=== PATIENT | female | born 1980 | race Caucasian/White ===

== ENCOUNTER 2025-02-24 13:54 | Outpatient (AMB) | payer OTHER, SELFPAY ==
--- NOTE | 2025-02-24 13:56 | MHC.OFFVISWM ---
VS Expanded 02/24/25 14:10 BP 105/57 L Blood Pressure Location Rt brachial Blood Pressure Position Sitting Pulse 65 Pulse Source Pulse Oximeter Temp 97.8 F Temperature Source Temporal Artery Scan Pulse Oximetry 99 Oxygen Delivery Method Room Air Height 5 ft 7 in Weight 257 lb 12.8 oz BMI 40.4 Body Fat % 48.4 Body Fat Mass 124.8 Fat Free Mass 133.0 Visceral Fat Rating 14.0 Body Water % 36.9 Body Water Mass 95.0 Muscle Mass/Score 126.4 Basal Metabolic Rate/Score 1,898 Intake Visit Reasons: OV PO LSG 07/30/19 *See Comments* Deputy Assessor Required: No Allergies environmental allergies Allergy (Mild, Verified 02/24/25 14:00) SNEEZE Medication List - Last Reconciled 02/24/25 by BRENDAN Hawley albuterol sulfate 90 mcg/actuation inhalation fluticasone propion-salmeterol 500-50 mcg/dose inhalation hydroxychloroquine 200 mg PO BID methotrexate sodium 17.5 mg PO QWEEK montelukast 10 mg PO DAILY tramadol 50 mg PO TID PRN HPI Comments Details: Patient is a 45-year-old female who returns to the office today in follow-up. She is 5 years 7 months post sleeve gastrectomy performed 07/30/2019. She states that right after surgery, the COVID pandemic occurred and things were shut down. Over the time since, she had to care for her family. At this point she is now able to focus on herself. She reports starting weight when entering the program was a proximally 260 lb. Weight at the time of surgery was approximately 223 lb. Lowest weight was 209 lb. Weight today is 257.8 lb with a BMI of 40.4. Meal plan: none Exercise plan: nothing formal Has PF membership Any post op complications: none ART: never DM: never HTN: never Hyperlipidemia: never GERD:?0-5 scale ??0 = no symptoms ??1 = symptoms noticeable but not bothersome 2 =symptoms bothersome but not daily ? 3 = symptoms bothersome and daily 4 = symptoms affect daily activities 5 = symptoms are incapacitating, unable to do daily activities ? How bad is the heartburn: 2 ? Heartburn while lying down: 0 ? Heartburn when standing up: 2 ? Heartburn after meals: 2 ? Does heartburn change your diet: 0 ? Does heartburn wake you up from sleep: 0 ? Do you have difficulty swallowin ? Do you have pain with swallowin ? If you take medicine for your reflux, does this affect your daily life: 0 Satisfaction with present condition - satisfied or not satisfied: not satisfied [facility] Medical History Delivery with history of Surgical History Hx of LASIK Hx of ovarian cystectomy Hx of splenectomy S/P gastric sleeve procedure Family History Mother Hypertension Diabetes Heart problem Father Hepatitis A Hypertension Hepatitis C Daughter No problems noted. Social History Alcohol intake: current Alcohol intake frequency: holidays/special occasions only Patient Tobacco Use Status: Former Tobacco user Physical Exam Const General: cooperative and no acute distress Orientation/consciousness: patient oriented x3 Resp Effort & Inspection: normal respiratory effort Auscultation: clear to auscultation bilaterally Cardio Rate: regular rate Rhythm: regular rhythm GI Inspection: Yes normal to inspection and Yes incision (well healed) Palpation (GI): Soft to palpation and no masses Neuro General: patient oriented x3 Assessment & Plan Assessment & Plan (1) Morbid obesity: Code(s): E66.01 - Morbid (severe) obesity due to excess calories Category: Medical Plan: Patient is a pleasant 45-year-old female, returns to the office after not being seen for approximately 5 years. This was secondary to initially COVID pandemic and then life's circumstances. She is now ready to return to the program and commit to her health and healthy living. She was given information regarding the right BMI beverly. Discussed the importance of following it exactly. She was given my cell phone number so she may communicate with me directly in between visits, sending weights weekly and text with any questions or concerns. We will check yearly postop follow-up labs and make recommendations based on data. Discussed the importance of exercise and how it directly impacts her overall goals. She has a membership to [employer] gym. Discussed the importance of cardiovascular activity with a goal of burning 300 calories per day, 7 days per week or 2000 calories total per week. Encouraged to stretch before and after cardio sessions. We will have her return to the office in approximately 4 weeks. Orders: Orders Hemoglobin A1c Today E66.01 - Morbid (severe) obesity due to excess calories, Z98.84 - Bariatric surgery status Complete Blood Count Auto Diff Today E66.01 - Morbid (severe) obesity due to excess calories, Z98.84 - Bariatric surgery status Vitamin B12 and Folate Today E66.01 - Morbid (severe) obesity due to excess calories, Z98.84 - Bariatric surgery status C Reactive Protein Today E66.01 - Morbid (severe) obesity due to excess calories, Z98.84 - Bariatric surgery status TSH reflex Free T4 Today E66.01 - Morbid (severe) obesity due to excess calories, Z98.84 - Bariatric surgery status Vitamin D 25-OH Total Today E66.01 - Morbid (severe) obesity due to excess calories, Z98.84 - Bariatric surgery status Insulin Today E66.01 - Morbid (severe) obesity due to excess calories, Z98.84 - Bariatric surgery status Lipid Panel Today E66.01 - Morbid (severe) obesity due to excess calories, Z98.84 - Bariatric surgery status IRON PROFILE Today E66.01 - Morbid (severe) obesity due to excess calories, Z98.84 - Bariatric surgery status Comprehensive Met. Panel Today E66.01 - Morbid (severe) obesity due to excess calories, Z98.84 - Bariatric surgery status Zinc Today E66.01 - Morbid (severe) obesity due to excess calories, Z98.84 - Bariatric surgery status Vitamin B1 Today E66.01 - Morbid (severe) obesity due to excess calories, Z98.84 - Bariatric surgery status Vitamin A Today E66.01 - Morbid (severe) obesity due to excess calories, Z98.84 - Bariatric surgery status Ferritin Today E66.01 - Morbid (severe) obesity due to excess calories, Z98.84 - Bariatric surgery status
[2025-02-24 14:10] VITALS: BP 105/57; PULSE 65; TEMP 36.6; O2SAT 99; BMI 40.4
--- OUTSIDE RECORDS SUMMARY | 2025-02-24 15:28 | XMS_ITS | Data Portability ---
Author Organization BRENDAN Hutchinson s, [address] Address [address] [place] [address] Assessment No assessment recorded. Plan of Treatment Reminders Order Date Submit Date Provider Last Modified By Organization Details Last Modified Time Details Appointments None recorded. Lab rapid SARS CoV 2 Ag, QL IA, respiratory specimen 2022 023 [place] [id number] [address], [address] [place] [address], [phone], 3 09:10:58 rapid strep group A, throat 2022 023 [place] [address] [facility], [address] [place] [address], [phone], 3 09:10:58 Referral None recorded. Procedures None recorded. Surgeries None recorded. Imaging None recorded. Medication Orders albuterol sulfate HFA 90 mcg/actuati on aerosol inhaler 2022 023 [id number], [address] [place] [address], [phone], 3 09:11:09 benzonatate 200 mg capsule 2022 023 [facility] #[id number], [address] [place] [address], [id number], 3 09:11:11 cephalexin 500 mg capsule 2022 023 [id number], [address], [place], [phone], 09:11:10 Patient TargetsNo targets recorded. Patient Instructions Encounter Date Encounter Id Patient Instructions Last Modified By Organization Details Last Modified Time 11/25/2022 [id number] sore throat: car e instructions [email or web address] Not available 11/25/2022 09:10:58 Based on your Presentation, Exam, and Lab Testing you are being diagnosed with Strep Throat. Your Rapid Strep Test was positive. I am going to prescribe you and antibiotic to cover this infection. Please be sure to complete the full course of this antibiotic to prevent antibiotic resistance. It is also important to complete this antibiotic because this infection is what causes Scarlet Fever/Rheumatic Heart Disease. Antibiotics will typically take 4-5 days to start to work with symptom improvement. The following are my other recommendations to help with symptoms and is important for this diagnosis: 1. Do not share any food or drinks - strep is passed through direct saliva exchange (NOT IN THE AIR) 2. Change your toothbrush in 3-4 days so that you don't re-infect yourself after you complete the antibiotic. 3. Take Ibuprofen or Tylenol if you do not have any allergies to these medications. If you take a blood thinner you should not take NSAIDS like Ibuprofen. These medication will help with the inflammation in your respiratory tract which should help the cough. 4. Do not take any Cold Medications that have a Decongestant in it - this will dry out your throat and make the sore throat worse. 5. Drinking Hot Tea with honey can help coat and soothe your throat. 6. You would be considered contagious for the next 24-48 hours, or until fever resolves. I would be seen again if you develop any of the following symptoms. 1. Fever > 101.0 2. Stiff neck - where you can't turn your neck 3. Trouble swallowing your saliva - drooling 4. Swelling of a lymph node in your throat that is painful to touch 5. Difficulty breathing 6. Severe Headache Thank you for using [facility] today, please feel free to contact our office if you have any questions or concerns. [email or web address] Not available 11/25/2022 09:00:28 Reason for Referral None Reported. Results Created Date Observation Date Name Description Value Unit Range Abnormal Flag Note LastModifiedBy Organization Detail LastModifiedTime 11/25/19 23 11/25/2022 rapid SARS CoV 2 Ag, QL IA, respi rator y speci men Unknown Analyte Normal =Negat katina Not Available [address] [place] [address], [id number], 11/25/2022 08:57:19 11/25/19 23 11/25/2022 rapid SARS CoV 2 Ag, QL IA, respi rator y speci men Unknown Analyte negati ve Not Available [address] [place] [address], [phone], 11/25/2022 08:57:19 11/25/1911/25/2022 rapid strep group A, throa t Unknown Analyte Normal = Negati ve Not Available [address] [place] [address], [phone], 11/25/2022 08:38:55 11/25/1911/25/2022 rapid strep group A, throa t Unknown Analyte positi ve Not Available [address] [place] [address], [phone], 11/25/2022 08:38:55 Result Notes None recorded. Problems Name Problem SNOMED Code Status Onset Date Resolution Date Notes Provider Name and Address Organization Details Recorded Time Rheumatoid arthritis 12526661 Active 023 ALEN pink [place] - [facility] 08:41:30 Problem Notes None recorded. Procedures Surgical History Date Name Laterality Status Provider Name and Address Organization Details Recorded Time 07/19/20 19 splenectomy completed ALEN FISHER PA - [facility] 11/25/2022 08:42:59 laparoscopic sleeve gastrectomy completed ALNE FISHER PA - [facility] 11/25/2022 08:43:29 Imaging Results None recorded. Procedure Notes None recorded. Medical Equipment None Reported. Allergies No known drug allergies Medications Name Sig Start Date Stop Date Status Note LastModified by Organization Details LastModified Time benzonatate 200 mg capsule Take 1 capsule 3 times a day by oral route. 2022 active Not Available Not Available Not Avai lable cephalexin 500 mg capsule Take 1 capsule 3 times a day by oral route. 2022 active Not Available Not Available Not Avai lable diclofenac sodium 75 mg tablet,delay ed release Take 1 tablet twice a day by oral route. active Not Available Not Available No t Available albuterol sulfate HFA 90 mcg/actuatio n aerosol inhaler Inhale 2 puffs every 4 hours by inhalation route. 2022 active Not Available Not Available Not Avai lable folic acid active Not Available Not Av ailable Not Available methotrexate active Not Available Not Available Not Available tramadol active Not Available Not Avai lable Not Available Vitals Date Recorded Body height Body mass index (BMI) Body weight Pain severity - 0-10 verbal numeric rating [Score] - Reported Respiratory rate Oxygen saturation Oxygen saturation in Arterial blood by Pulse oximetry Heart rate Body temperature Systolic blood pressure Diastolic blood pressure Provider Name and Address Organization Details Last Updated DateTime 167.64 cm 38.7 kg/m2 107396. 17 g 8 20 /min 98 % 98 % 85 /min 97.9 [degF] 111 mm[Hg] 78 mm[Hg] ALEN Nash [facility] 08:45:01 Social History Question Answer Notes LastModified by Organizat ion Details LastModified Time Tobacco Smoking Status Former Smoker BRENDAN Virk [facility] 11/25/2022 08:42:37 What Is Your Level Of Alcohol Consumption? Occasional [email or web address] Information not available 11/25/2022 When Did You Quit Smoking? 6-10yearssince lastcigarette Information not available 11/25/2022 Do You Use Any Illicit Or Recreational Drugs? No [email or web address] Information not available 11/25/2022 Have You Recently Traveled Abroad? No [email or web address] Information not available 11/25/2022 Do You Or Have You Ever Used Any Other Forms Of Tobacco Or Nicotine? No [email or web address] Information not available 11/25/2022 Sex: Unknown Functional Status None recorded. Mental Status None recorded. Family History Relationship Description Onset Age of this Age Resolved Age Notes LastModified by Organization Details LastModified Time Father No current problems or disability [email or web address] Not available 11/25 08:42:07 Mother No current problems or disability [email or web address] Not available 11/25 08:42:07 Medical History No medical history recorded. Gynecological HistoryNo gynecological history recorded. Obstetrics History GPAL:G 0 P 0 0 0 0 Past Encounters Encounter ID Performer Location Encounter Start Date Encounter Closed Date Diagnosis/Indication Diagnosis SNOMED-CT Code Diagnosis ICD10 Code Diagnosis Note [id number] [address] [address] [place] [address] 11/25/2019 11:24:16 11/25/2019 12:20:12 [id number] [address] [address] [place] [address] 07/05/2020 11:31:29 07/05/2020 12:06:43 [id number] [address] [address] [address] [place] [address] 08/14/2022 08:05:18 08/14/2022 08:58:49 [id number] BRENDAN RUBIO [address] [address] [place] [address] 11/25/2022 08:09:48 11/25/2022 09:14:52 Acute pharyngitis 508586717 J02.9 Exposure t o SARS-CoV-2 915951167 Z20.822 Wheezing 71147803 R06.2 Health Concerns Section Related Observation LastModified by Organization Detai ls LastModified Time None Recorded Concern Status LastModified by Organization Details LastModified Time None Recorded Advance Directives Directive None Recorded Payers Encounter Date Sequence Insurance Name Policy Number Policy Haley Covered Member ID Haley Member ID Guarantor Name 08/14/2022 1 [facility] [id number] Dorina Heroux [id number] Dorina Heroux 08/14/2022 2 [place] [id number] Dorina A Heroux [id number] Dorina Schofield 11/25/2022 1 [facility] [id number] Dorina Schofield [id number] Dorina Schofield Notes Date Note Type Note Provider Name and Address Organization Details Recorded Time 3 text/html Sore throatReported bypatient.Source of patient informationInformation obtained from patient; Patient arrived at Urgent Care ambulatory Location:throat Severity:moderate Quality:hurts to swallow Onset/Timin days Associated Symptoms:no sputum production; no shortness of breath; no sinus pain; no vomiting; no nausea; No hoarseness;wheezing;sore throat;fever;coughing Context:no sick contacts BRENDAN RUBIO [address] [place], [address], [place] - [facility] 11/25/2022 09:12:52 OBGyn Episode No OBEpisode recorded.
== END 2025-02-24 15:03 | disposition home or self-care (01) ==
LOC: HO.HBS 13:55
PROVIDERS: PCP Internal Medicine; Visit Provider Physician Assistant Surgical
DX: E66.01 Morbid (severe) obesity due to excess calories (principal); Z68.41 Body mass index [BMI] 40.0-44.9, adult
CPT/HCPCS: 99214